=== PATIENT | male | born 1990 | race Caucasian/White ===

== ENCOUNTER → 2016-09-27 | Outpatient (CLI) | payer MEDICAID ==
--- NOTE | 2016-09-27 10:51 | US ---
Venous Doppler Study of right Lower Extremity Clinical Indications: Previous DVT at [facility] July, after ACL surgery. On blood thi nners. Followup evaluation. Technique: High-frequency transducer was used for imaging and Doppler study of the deep veins of the leg from the upper calf to the groin. Pulsed Doppler and color Doppler were utilized, along with va rious maneuvers, to assess flow in the deep veins. Findings: There is focal thrombus involving proximal segment of posterior tibial vein in the proxima l calf just above the confluence of the posterior tibial veins for length of about 2 cm. Otherwise, t he deep veins of the groin, thigh, knee, and upper calf are well displayed and are otherwise normally compressible. Doppler flow patterns are unremarkable. There is no evidence of additional deep veno us thrombosis. There is normal compression of the greater saphenous vein without superficial thrombos is. Impression: Short segment of thrombus in the posterior tibial vein confluence in the proximal calf w ithout additional evidence of DVT. Clinical correlation is recommended with respect to the extent of DVT found at [facility].
== END ==
LOC: BMCIMAGING 09:29
PROVIDERS: ATTEND Internal Medicine
DX: I82.441 Acute embolism and thrombosis of right tibial vein (principal)

== ENCOUNTER 2016-10-13 13:29 | Emergency (ER) | payer MEDICAID ==
[2016-10-13 13:33] VITALS: RESP 16
--- NOTE | 2016-10-13 13:38 | EDPHY ---
H & P Stated Complaint: EXTREMELY SUICIDAL, WOULD TRY AND SLIT JUGULAR, LIGHT SELF ON FIRE - Personal History Current Tetanus Diphtheria and Acellular Pertussis (TDAP): Yes Tetanus Vaccine Date: < 10 YEARS - Medical/Surgical History Hx Asthma: Yes Hx Chronic Respiratory Disease: No Hx Diabetes: No Hx Cardiac Disease: No Hx Renal Disease: No Hx Cirrhosis: No Hx Alcoholism: No Hx HIV/AIDS: No Hx Splenectomy or Spleen Trauma: No Other PMH: pmh-asthma, cellulitis. psh- L wrist. ACL SURGERY 08/01/2016 - Social History Smoking Status: Current every day smoker Time Seen by Provider: 10/13/16 13:36 Constitutional: Initial Vital Signs Temperature (C) 36.6 C 10/13/16 13:29 Heart Rate 93 10/13/16 13:29 Respiratory Rate 16 10/13/16 13:29 Blood Pressure 146/91 H 10/13/16 13:29 O2 Sat (%) 94 10/13/16 13:29 O2 Delivery Mode Room Air Allergies/Adverse Reactions: Sulfa (Sulfonamide Antibiotics) Allergy (Mild, Verified 10/13/16 13:34) Home Medications: Medication Instructions Recorded Warfarin Sodium [Coumadin] 10 mg PO DAILY 10/14/16 oxyCODONE IR [Oxycodone Ir (*)] 10 mg PO Q4HRS PRN 10/14/16 Medical Decision Making ED Course/Re-evaluation: CHIEF COMPLAINT: Psychiatric evaluation HISTORY OF PRESENT ILLNESS: The patient is a 26-year-old male with a history of depression and suicidal attempts who presents with acute SI. He reports that he has a plan and would kill himself at any moment. He says he would either "slit the jugular" or "light myself on fire and jump off of a building." He is also on Warfarin for a blood clot that he got after knee surgery. He denies HI. REVIEW OF SYSTEMS: A 10 point review of systems was performed and is negative with the exception of the elements mentioned in the history of present illness. PHYSICAL EXAM: General Appearance: Alert, well hydrated, appropriate, and non-toxic appearing. Head: Atraumatic without scalp tenderness or obvious injury Eyes: Pupils equal, round, reactive to light and accommodation, EOMI, no trauma , no injection. Ears: Clear bilaterally, no perforation, normal landmarks Nose: Atraumatic, no rhinorrhea, clear. Throat: There is no erythema or exudates, no lesions, normal tonsils, mucus membranes moist. Neck: Supple, 2+ carotid upstroke, nontender, no lymphadenopathy. Respiratory: No retractions, no distress, no wheezes, and no accessory muscle use. Lungs are clear to auscultation bilaterally. Cardiovascular: Regular rate and rhythm, no murmurs, rubs, or gallops. Bilateral carotid, radial, dorsalis pedis, and posterior tibial pulses intact. Good capillary refill all extremities. Gastrointestinal: Abdomen is soft, nontender, non-distended, no masses, no rebound, no guarding, no peritoneal signs. Musculoskeletal: Normal active ROM of all extremities, atraumatic. Neurological: Alert, appropriate, and interactive. The patient has normal DTRs and non-focal cranial nerves, motor, sensory, and cerebellar exam. Skin: No rashes, good turgor, no nodules on palpation. Past medical history:Depression, asthma, cellulitis. Past surgical history:Knee surgery. Family history:Non-contributory. Social history:Here alone. DIFFERENTIAL DIAGNOSIS: The differential diagnosis for the patient's depression included but was not limited to functional and major depression, situational depression, medication side effect, drugs, and alcohol abuse. MEDICAL DECISION MAKING: Patient is in no acute distress and is hemodynamically stable. We are awaiting psychiatric team's evaluation. Patient has known history of psychiatric disorders and is here for evaluation. An IV was established and labs ordered. The patient's Coumadin level will be checked. 1400: Patient signed out to Dr. Carter at shift change. (Mook Day) 7:00 a.m.- The patient has remained stable throughout my shift, the case has been signed out to Dr. Stephens. The patient is awaiting placement at a crisis stabilization unit. (Irma Cruz) Care assumed from Dr. Carter at 8:45 p.m., plan for psychiatric evaluation and disposition after their recommendations. 2158: Patient had psychiatric evaluation and per Дмитрий servicing rep at this time plan for CSU placement. Signed out to Anthony at 0 with plan as above. 1418: 10/[address] Stephens at this time with psychiatric disposition still pending. Patient accepted at [facility] crisis stabilization unit by Jigna Glenney TOXICOLOGIST. Reason for transfer is inpatient psychiatric stabilization not available at [facility], stable for transfer. Accepted by Dr. Adebayo Swain at [facility]. (Harjeet Ponce) Other Provider: Patient signed out to me by Dr. Day at 2:00 p.m. pending mental health evaluation. I signed the patient out to Dr. Harjeet Ponce at approximately 8:45 p.m. pending mental health evaluation as well. The patient is medically clear. He has been given his evening dose of Coumadin. (Jayden Carter) I assumed care of this patient at 7 o'clock, change of shift, from Dr. Irma Cruz. We are awaiting placement at the crisis stabilization unit. Patient requested a nicotine patch which was given. Patient's care was assumed by Dr. Ponce at 3:00 p.m. patient can be placed at the crisis stabilization unit, however, there are issues regarding the patient' s regular medications in including Coumadin and narcotic pain medications. Please see Dr. Ponce note for further information. (Manisha Stephens) - Data Points Laboratory Results: Laboratory Results 10/13/16 13:51 10/13/16 13:51 Medications Given: Discontinued Medications Nicotine (Nicoderm Cq) 21 mg TD EDNOW ONE Stop: 10/14/16 12:57 Last Admin: 10/14/16 14:49 Dose: 21 mg Oxycodone HCl (Oxycontin) 10 mg PO ONCE ONE Stop: 10/14/16 15:30 Last Admin: 10/14/16 15:56 Dose: 10 mg Warfarin Sodium (Coumadin) 10 mg PO ONCE@16 ONE Stop: 10/13/16 16:01 Last Admin: 10/13/16 17:44 Dose: 10 mg Warfarin Sodium (Coumadin) 10 mg PO EDNOW ONE Stop: 10/14/16 15:29 Last Admin: 10/14/16 15:56 Dose: 10 mg Departure - Departure Disposition: Other Psych, Not Sho Clinical Impression: Depression, Suicidal ideation Condition: Good Instructions: Depression (ED), Suicide Prevention for Adults (ED) Referrals: Bryan Simeon MD [Primary Care Provider] - As per Instructions Report Scribed for: Mook Day Report Scribed by: Parth Emerson Date of Report: 10/13/16 Time of Report: 13:42
[2016-10-13 13:59] LABS: % IMMATURE GRANULYOCYTES 0.3 % (0.0-1.1); ABSOLUTE IMMATURE GRANULOCYTES 0.04 10^3/uL (0.00-0.10); ADD DIFF? NO; ADD MORPH? NO; ADD SCAN? NO; ATYPICAL LYMPHOCYTE FLAG 0 (0-99); FRAGMENT RBC FLAG 0 (0-99); HEMATOCRIT 46.6 % (40.0-51.0); HEMOGLOBIN 16.2 g/dL (13.7-17.5); LEFT SHIFT FLG 0 (0-99); LIPEMIA HEMOLYSIS FLAG 90 (0-99); MEAN CELL HEMOGLOBIN 30.5 pg (27.9-34.1); MEAN CELL HEMOGLOBIN CONCENTR. 34.8 g/dL (32.4-36.7); MEAN CELL VOLUME 87.6 fL (81.5-99.8); MEAN PLATELET VOLUME 9.4 fL (8.7-11.7); PLATELET CLUMPS FLAG 0 (0-99); PLATELET COUNT 304 10^3/uL (150-400); RED BLOOD CELL COUNT 5.32 10^6/uL (4.40-6.38); RED CELL DISTRIBUTION WIDTH 12.4 % (11.5-15.2)
[2016-10-13 14:11] LABS: INR 1.42 (0.83-1.16); PROTIME(PATIENT) 17.3 SEC (12.0-15.0)
[2016-10-13 14:12] LABS: APTT 29.6 SEC (23.0-38.0)
[2016-10-13 14:15] LABS: ANION GAP 10 mEq/L (8-16); CALCIUM 9.2 mg/dL (8.5-10.4); CARBON DIOXIDE 26 mEq/l (22-31); CHLORIDE 103 mEq/L (97-110); CREATININE 0.7 mg/dL (0.7-1.3); ETHANOL SERUM 82 mg/dL (0-10); GLOMERULAR FILTRATION RATE > 60; GLUCOSE 97 mg/dL (70-100); POTASSIUM 3.7 mEq/L (3.5-5.2); SALICYLATE < 1.0 mg/dL (2.0-20.0); SODIUM 139 mEq/L (134-144)
[2016-10-13] MEDS ORDERED: WARFARIN SODIUM 5 MG TAB PO ONE (16:00)
[2016-10-14] MEDS ORDERED: NICOTINE 21 MG/24 HR PATCH TD ONE (12:56)
[2016-10-14] MEDS ORDERED: WARFARIN SODIUM 5 MG TAB PO ONE (15:28)
[2016-10-14 17:39] VITALS: BP 157/81; PULSE 79; TEMP 98.4; O2SAT 97
== END 2016-10-14 17:32 ==
DX: R45.851 Suicidal ideations (principal); F32.9 Major depressive disorder, single episode, unspecified; J45.909 Unspecified asthma, uncomplicated; F17.200 Nicotine dependence, unspecified, uncomplicated; Z79.01 Long term (current) use of anticoagulants
CPT/HCPCS: 80305; G0480

== ENCOUNTER → 2016-12-28 | Outpatient (CLI) | payer MEDICAID | LOC: BMCIMAGING 16:21 | PROVIDERS: ATTEND Internal Medicine | DX: R04.2 Hemoptysis (principal); R10.9 Unspecified abdominal pain ==

== ENCOUNTER → 2017-01-15 | Outpatient (CLI) | payer MEDICAID | LOC: FIMAGING 08:05 | PROVIDERS: ATTEND Internal Medicine | DX: K31.89 Other diseases of stomach and duodenum (principal); K21.9 Gastro-esophageal reflux disease without esophagitis ==

== ENCOUNTER → 2017-01-18 | Outpatient (CLI) | payer MEDICAID | LOC: BMCIMAGING 10:47 | PROVIDERS: ATTEND Internal Medicine | DX: Z09 Encounter for follow-up examination after completed treatment for conditions other than malignant neoplasm (principal); I82.521 Chronic embolism and thrombosis of right iliac vein ==

== ENCOUNTER → 2017-12-21 | Outpatient (CLI) | payer MEDICAID | LOC: FIMAGING 14:02 | PROVIDERS: ATTEND Physician Assistant | DX: T84.84XA Pain due to internal orthopedic prosthetic devices, implants and grafts, initial encounter (principal); Z96.9 Presence of functional implant, unspecified ==

== ENCOUNTER 2018-01-19 01:30 | Emergency (ER) | payer MEDICAID ==
[2018-01-19 01:41] VITALS: BP 142/114
--- NOTE | 2018-01-19 01:42 | EDPHY ---
H & P Time Seen by Provider: 01/19/18 01:39 HPI/ROS: HPI CHIEF COMPLAINT: Alcohol intoxication, left chest wall pain. HISTORY OF PRESENT ILLNESS: This patient 27-year-old male, he drinks alcohol regularly, he states that he had 6 beers this evening percentage of alcohol 8-10 %, additionally he had shots of liquor, he was going home this evening when police made contact with him out in front of a front yd where he was not causing disturbance. He complained of left lateral posterior chest wall pain to the police and they called EMS. EMS evaluated him and decided to bring him to the emergency room. The patient did not want come to the emergency room. Patient states that he felt fine however did have a large amount of alcohol this evening. He denies injuring himself or falling. He does complain of left posterior left lateral rib pain. He is unsure how he injured himself. He denies falling. However he is intoxicated with alcohol. Past Medical History: History of PE after ACL surgery. Past Surgical History: ACL surgery. Social History: Alcohol use frequently, smokes tobacco daily. Denies other illicit drugs. Family History: Noncontributory ROS REVIEW OF SYSTEMS: A comprehensive 10 point review of systems is otherwise negative aside from elements mentioned in the history of present illness. Exam Constitutional appears well nontoxic no acute distress, triage nursing summary reviewed, vital signs reviewed, awake/alert. Eyes normal conjunctivae and sclera, EOMI, PERRLA. HENT normal inspection, atraumatic, moist mucus membranes, no epistaxis, neck supple/ no meningismus, no raccoon eyes. Respiratory clear to auscultation bilaterally, normal breath sounds, no respiratory distress, no wheezing. Cardiovascular chest wall: Left lateral and posterior chest mild tender palpation, no crepitus, no subcutaneous emphysema, reproducible on exam, most focally tender left lateral posterior ribs. rate normal, regular rhythm, no murmur, no edema, distal pulses normal. Gastrointestinal soft, non-tender, no rebound, no guarding, normal bowel sounds, no distension, no pulsatile mass. Genitourinary no CVA tenderness. Musculoskeletal no midline vertebral tenderness, full range of motion, no calf swelling, no tenderness of extremities, no meningismus, good pulses, neurovascularly intact. Skin pink, warm, & dry, no rash, skin atraumatic. Neurologic awake, alert and oriented x 3, AAOx3, moves all 4 extremities equally, motor intact, sensory intact, CN II-XII intact, normal cerebellar, normal vision, normal speech. Psychiatric normal mood/affect. Heme/Lymph/Immune no lymphadenopathy. Differential Diagnosis: Includes but is not limited to in a particular order acute alcohol intoxication, rib contusions, rib fractures, pneumothorax, hemothorax, soft tissue contusion Medical Decision Making: Plan for this patient breath alcohol, x-ray two view chest rule out pneumothorax or significant rib fractures. Re-evaluation: 0141: Breath alcohol 209. X-ray of the chest two view shows a left lateral lower rib fracture. This was interpreted by myself. There is no pneumothorax visualize. I see 1 single rib fracture. Discussed with patient about his rib fracture. Recommend incentive spirometer. Anti-inflammatory pain medicine. Additionally discussed return precautions with him. He understands return emergency room if develops worsening pain shortness of breath questions or concerns. Source: Patient, EMS - Personal History Tetanus Vaccine Date: < 10 YEARS - Medical/Surgical History Hx Asthma: Yes Hx Chronic Respiratory Disease: No Hx Diabetes: No Hx Cardiac Disease: No Hx Renal Disease: No Hx Cirrhosis: No Hx Alcoholism: No Hx HIV/AIDS: No Hx Splenectomy or Spleen Trauma: No Other PMH: pmh-asthma, cellulitis. psh- L wrist. ACL SURGERY 08/01/2016 - Social History Smoking Status: Current every day smoker Constitutional: Initial Vital Signs Temperature (C) 36.6 C 01/19/18 01:39 Heart Rate 67 01/19/18 01:39 Respiratory Rate 16 01/19/18 01:39 Blood Pressure 142/114 H 01/19/18 01:39 O2 Sat (%) 96 01/19/18 01:39 O2 Delivery Mode Room Air Allergies/Adverse Reactions: Sulfa (Sulfonamide Antibiotics) Allergy (Mild, Verified 01/19/18 01:36) Home Medications: Medication Instructions Recorded Ibuprofen 01/19/18 Ibuprofen [Motrin (*)] 800 mg PO Q6-8PRN #14 tab 01/19/18 traMADol 01/19/18 Departure - Departure Disposition: Home, Routine, Self-Care Clinical Impression: Alcohol intoxication Qualifiers: Complication of substance-induced condition: uncomplicated Qualified Code(s): F10.920 - Alcohol use, unspecified with intoxication, uncomplicated Rib fracture Qualifiers: Encounter type: initial encounter Rib fracture type: single rib Fracture type: closed Laterality: left Qualified Code(s): S22.32XA - Fracture of one rib, left side, initial encounter for closed fracture Condition: Good Instructions: Rib Fracture (ED), Alcohol Intoxication (ED), Contusion in Adults (ED) Additional Instructions: 1. Refrain from drinking alcohol. 2. Recommend he take anti-inflammatory pain medicine for her rib pain this includes Tylenol/Motrin. 3. Return emergency room if you have worsening pain, shortness of breath or questions or concerns. Referrals: Patient,NotPresent [Unknown] - As per Instructions Prescriptions: Ibuprofen [Motrin (*)] 800 mg PO Q6-8PRN #14 tab
== END 2018-01-19 02:30 | disposition home or self-care (01) ==
LOC: EDUNIT#
DX: S22.32XA Fracture of one rib, left side, initial encounter for closed fracture (principal); F10.920 Alcohol use, unspecified with intoxication, uncomplicated; J45.909 Unspecified asthma, uncomplicated; F17.200 Nicotine dependence, unspecified, uncomplicated; X58.XXXA Exposure to other specified factors, initial encounter

== ENCOUNTER 2018-02-07 09:38 | Day surgery (SDC) | payer MEDICAID ==
[2018-02-07] MEDS ORDERED: LR 1,000 ML IV SCH (09:44)
[2018-02-07] MEDS ORDERED: ceFAZolin 2 GM/SWFI 2 GM/20 ML SYR IVP ONE (09:44)
[2018-02-07] MEDS ORDERED: ACETAMINOPHEN 500 MG TAB PO ONE (09:44)
[2018-02-07] MEDS ORDERED: LR 1,000 ML IV ONE (09:45)
--- NOTE | 2018-02-07 10:48 | PDANEPAE ---
<Dean García - Last Filed: 02/07/18 10:46> ANE History of Present Illness 27 yo male with R ACL tear for reconstruction. ANE Past Medical History - Cardiovascular History Hx Hypertension: No Hx Arrhythmias: No Hx Chest Pain: No Hx Coronary Artery / Peripheral Vascular Disease: No Hx CHF / Valvular Disease: No Hx Palpitations: No - Pulmonary History Hx COPD: No Hx Asthma/Reactive Airway Disease: Yes Hx Oxygen in Use at Home: No Hx Sleep Apnea: No Sleep Apnea Screening Result - Last Documented: Negative - Neurologic History Hx Cerebrovascular Accident: No Hx Seizures: No Hx Dementia: No - Endocrine History Hx Diabetes: No - Renal History Hx Renal Disorders: No - Liver History Hx Hepatic Disorders: No - Neurological & Psychiatric Hx Hx Neurological and Psychiatric Disorders: Yes Neurological / Psychiatric History Comment: depression/bipolar, multiple suicide attempts - Cancer History Hx Cancer: No - Congenital Disorder History Hx Congenital Disorders: No - GI History Hx Gastrointestinal Disorders: Yes Gastrointestinal History Comment: hx ulcers - Other Health History Other Health History: broken rib on left - Chronic Pain History Chronic Pain: No (left back ribs broken) - Surgical History Prior Surgeries: acl repair 2016 with PE post procedure. bilat wrist,right wrist has plate ANE Review of Systems Review of Systems: - Exercise capacity METS (RN): 6 METS ANE Patient History - Allergies Allergies/Adverse Reactions: Sulfa (Sulfonamide Antibiotics) Allergy (Mild, Verified 01/19/18 01:36) - Home Medications Home Medications: Ibuprofen 01/19/18 [Last Taken 02/02/18] traMADol 50 mg 01/19/18 [Last Taken 02/07/18 05:00] - NPO status NPO Since - Liquids (Date): 02/07/18 NPO Since - Liquids (Time): 07:00 NPO Since - Solids (Date): 02/06/18 NPO Since - Solids (Time): 23:30 - Smoking Hx Smoking Status: Heavy smoker - Alcohol Use Alcohol Use: Heavy (frequent intoxication) - Family Anes Hx Family Hx Anesthesia Complications: none ANE Labs/Vital Signs - Vital Signs Blood Pressure: 144/85 Heart Rate: 71 Respiratory Rate: 14 O2 Sat (%): 96 Height: 172.72 cm Weight: 78.471 kg <Marti Patino - Last Filed: 02/07/18 11:44> ANE Past Medical History - Cardiovascular History Hx Hypertension: No Hx Arrhythmias: No Hx Chest Pain: No Hx Coronary Artery / Peripheral Vascular Disease: No ANE Review of Systems Review of systems is: negative Review of Systems: - Systems Respiratory: Reports: cough (chronic smoker's cough) ANE Patient History - Anes Hx Anes Hx: no prior problems - Smoking Hx Smoking Status: Heavy smoker Marijuana use: No - Alcohol Use Alcohol Use: Heavy (trying to quit - no drinking in past 3 weeks) ANE Physical Exam - Airway Neck exam: FROM Mallampati Score: Class 2 Mouth exam: poor dentition - Pulmonary Pulmonary: other (coarse BS) - Cardiovascular Cardiovascular: regular rate and rhythym - ASA Status ASA Status: II ANE Anesthesia Plan Anesthesia Plan: GA w LMA
[2018-02-07] MEDS ORDERED: ceFAZolin 2 GM/DEXTROSE 100 ML IV ONE (11:00)
[2018-02-07] MEDS ORDERED: EPINEPHrine 30 MG/30 ML MDV (0.1 MG/0.1 ML) ONE (11:01)
[2018-02-07] MEDS ORDERED: BUPIVACAINE 0.5% 30 ML SDV ONE (11:01)
[2018-02-07] MEDS ORDERED: EPINEPHrine 1 MG/ML INJ ONE (11:01)
--- NOTE | 2018-02-07 11:04 | PDHPUP ---
History & Physical Update H&P update statement: This history and physical update is based on an assessment of the patient which was completed after admission or registration (within 24 hours), but prior to the surgery/procedure. H&P update: no change in patient's condition since H&P completed
[2018-02-07] MEDS ORDERED: oxyCODONE IR 5 MG TAB PO PRN ×2 (11:06→13:25)
[2018-02-07] MEDS ORDERED: MIDAZOLAM 2 MG/2 ML VIAL IVP ONE (11:47)
[2018-02-07] MEDS ORDERED: DEXAMETHASONE 4 MG/ML VIAL ONE (11:59)
[2018-02-07] MEDS ORDERED: fentaNYL 100 MCG/2 ML INJ ONE ×3 (11:59→14:32)
[2018-02-07] MEDS ORDERED: LIDOCAINE 2% 5 ML SDV ONE (11:59)
[2018-02-07] MEDS ORDERED: PROPOFOL/EMULSION 500 MG/50 ML BOTTLE IV ONE (11:59)
[2018-02-07] MEDS ORDERED: ONDANSETRON 4 MG/2 ML VIAL ONE (13:22)
[2018-02-07] MEDS ORDERED: DIAZEPAM 5 MG/ML 1 ML SYR IVP PRN (13:25)
[2018-02-07] MEDS ORDERED: PROMETHAZINE HCL 25 MG/ML INJ IVP PRN (13:25)
[2018-02-07] MEDS ORDERED: NALOXONE HCL 0.4 MG/ML INJ IVP PRN (13:25)
[2018-02-07] MEDS ORDERED: IPRATROPIUM/ALBUTEROL 3 ML DEYVIAL IH PRN (13:26)
--- NOTE | 2018-02-07 13:30 | POSTOPPROG ---
Post Op Note Date of Operation: 02/07/18 Surgeon: Filiberto Woods Label Paster: burt Anesthesiologist: mejia Anesthesia: GET(General Endotracheal) Pre-op Diagnosis: right knee acl tear Post-op Diagnosis: same Indication: manav Procedure: right knee scope, bone grafting Inf/Abcess present in the surg proc area at time of surgery?: No Depth: Deep Incisional (Fascial) EBL: 50-100
--- NOTE | 2018-02-07 13:50 | POSTANESTH ---
Post Anesthetic Evaluation Cardiovascular Status: Normal, Stable Respiratory Status: Normal, Stable Level of Consciousness/Mental Status: Can Participate in Eval, Mildly Sleepy, Arousable Pain Control: Adequate, Prn Tx Ordered Nausea/Vomiting Control: Adequate, Prn Tx Ordered Complications Possibly Related to Anesthesia: None Noted
[2018-02-07] MEDS ORDERED: oxyCODONE IR 5 MG TAB ONE (14:17)
[2018-02-07] MEDS: fentaNYL 100 MCG/2 ML INJ IVP PRN ×2 (14:36→14:51)
[2018-02-07 16:07] VITALS: BP 139/86
--- NOTE | 2018-02-12 13:50 | GOP ---
[f rep st] OPERATIVE REPORT DATE OF OPERATION: 02/07/2018 SURGEON: Filiberto Woods MD PASTORAL ASSISTANT: Harjinder Urias SOAP PRESS FEEDER, [facility], whose surgical assistance was a medical necessity for the entiret y of the case. PREOPERATIVE DIAGNOSIS: Right knee failed anterior cruciate ligament with bone loss tibia. POSTOPERATIVE DIAGNOSIS: Right knee failed anterior cruciate ligament with bone loss tibia. PROCEDURE PERFORMED: 1. Right knee arthroscopy with minor synovectomy. 2. Craterization, excision of bone tibia. 3. Bone graft tibia. FINDINGS: SPECIMENS: To Pathology, none. INDICATIONS: The patient is a 27-year-old young gentleman who is known to me for previous ACL recons truction. He has developed failure of his ACL with bony enlargement to his tibia and loss of the prev ious graft. Given his young age, instability level, I recommended recurrent ACL revision; however, gi danni the bone loss of the tibia, he requires bone grafting as a stage reimplantation procedure. He und erstood the risks, benefits, alternatives, and wished to proceed. Written consent was signed and plac ed in patient's chart. DESCRIPTION OF PROCEDURE: The patient was identified in the preanesthesia area. The right knee was c learly demarcated as the operative site with an indelible marker. He was given 2 g of Ancef intraveno usly en route to the operative suite. In the OR, general endotracheal anesthesia was administered. Attention was turned to the right knee, which was sterilely prepped and draped in usual fashion. A to urniquet was applied to the upper thigh. The limb was then sterilely prepped and draped. Appropriate time-out procedure was carried out. The limb was exsanguinated with Esmarch bandage. The tourniquet i nflated to 275 mmHg. Standard arthroscopic portal sites created. Diagnostic arthroscopy ensued. The articular surface of t he patella and trochlea were intact. The suprapatellar pouch was devoid of any loose foreign debris. The medial and lateral gutters were free of any loose foreign debris. The medial compartment was ente red. The articular surface of the femur and tibia were intact. The medial meniscus was stable and int act. Concurrently, the intercondylar notch was entered. The ACL graft was visualized. This was frayed and grossly torn across the midportion and this was completely debrided. The femoral tunnel was inta ct with no gross bony loss and no bone grafting was carried out. The ACL was debrided down to the tib ia. The lateral compartment was entered. The articular surface of the femur and tibia were intact. Th e lateral meniscus was stable, intact to gentle probing. Previous anterior medial incision was opened in entirety, carried sharply through the skin and subcut aneous tissue, down to bone. The bony tunnel was identified and a guidewire advanced into the interco ndylar area. This was serially reamed to a 2 cm diameter reamer. All loose soft tissue debris was wit hdrawn. A curette was used to remove the remaining soft tissue. Using a femoral head allograft, a 2 c m plug was then created. Additional bone fragments were then removed as cancellous chips and packed o ff to the lateral aspect. A bone plug was placed in a DBX and PRP mixture, and impacted flush with th e tibial surface. Drill holes were then placed into the bone plug and this was again injected with th e PRP and DBX material. The wound was copiously irrigated, closed in layers using 0 Vicryl, 2-0 Monoc ryl, and 4-0 Monocryl. The portal sites closed using 3-0 nylon. A sterile dressing was applied follow ed by a knee brace. The patient was awakened, extubated, and taken to recovery room in good stable co ndition. TOTAL TOURNIQUET TIME: 60 minutes. COMPLICATIONS: None. IMPLANTS: As above. DISPOSITION: To the recovery room, then home. /[id number]/MODL
== END 2018-02-07 16:25 | disposition home or self-care (01) ==
LOC: FSGY 09:38
PROVIDERS: ATTEND Orthopaedic Surgery
DX: S83.511A Sprain of anterior cruciate ligament of right knee, initial encounter (principal); M85.861 Other specified disorders of bone density and structure, right lower leg; T84.89XA Other specified complication of internal orthopedic prosthetic devices, implants and grafts, initial encounter
CPT/HCPCS: C1762; J0171; J0690; J1100; J2250; J2405; J2704; J3010; L1832

== ENCOUNTER → 2018-04-10 | Outpatient (CLI) | payer MEDICAID | LOC: BMCIMAGING 10:47 | PROVIDERS: ATTEND Physician Assistant | DX: S89.91XA Unspecified injury of right lower leg, initial encounter (principal); Z98.890 Other specified postprocedural states ==

== ENCOUNTER → 2018-07-31 | Outpatient (CLI) | payer MEDICAID | LOC: BMCIMAGING 08:08 | PROVIDERS: ATTEND Orthopaedic Surgery | DX: Z47.89 Encounter for other orthopedic aftercare (principal); S83.511D Sprain of anterior cruciate ligament of right knee, subsequent encounter ==

== ENCOUNTER 2018-08-29 11:15 | Day surgery (SDC) | payer MEDICAID ==
[2018-08-29] MEDS ORDERED: ceFAZolin 2 GM/DEXTROSE 100 ML IV ONE (11:25)
[2018-08-29] MEDS ORDERED: ACETAMINOPHEN 500 MG TAB PO ONE (11:25)
[2018-08-29] MEDS ORDERED: LR 1,000 ML IV SCH (11:25)
[2018-08-29] MEDS ORDERED: LR 1,000 ML IV ONE (11:26)
[2018-08-29] MEDS ORDERED: LIDOCAINE 1% 2 ML INJ ID PRN (11:26)
[2018-08-29] MEDS ORDERED: BUPIVACAINE/EPI 0.5% 30 ML SDV ONE (11:41)
[2018-08-29] MEDS ORDERED: EPINEPHrine 30 MG/30 ML MDV (0.1 MG/0.1 ML) ONE (11:41)
[2018-08-29] MEDS ORDERED: MIDAZOLAM 2 MG/2 ML VIAL IVP ONE (11:59)
--- NOTE | 2018-08-29 11:59 | PDANEPAE ---
ANE History of Present Illness 28 yo for ACL ANE Past Medical History - Cardiovascular History Hx Hypertension: No Hx Arrhythmias: No Hx Chest Pain: No Hx Coronary Artery / Peripheral Vascular Disease: No Hx CHF / Valvular Disease: Yes Hx Palpitations: No Cardiovascular History Comment: INTERMITTENT PVC'S RECENT CARDIAC WORKUP - Pulmonary History Hx COPD: No Hx Asthma/Reactive Airway Disease: No Hx Recent Upper Respiratory Infection: No Hx Oxygen in Use at Home: No Hx Sleep Apnea: No Sleep Apnea Screening Result - Last Documented: Negative Pulmonary History Comment: PE POST OP 2016. QUIT SMOKING 04/2018 - Neurologic History Hx Cerebrovascular Accident: No Hx Seizures: No Hx Dementia: No - Endocrine History Hx Diabetes: No - Renal History Hx Renal Disorders: No - Liver History Hx Hepatic Disorders: No - Neurological & Psychiatric Hx Hx Neurological and Psychiatric Disorders: Yes Neurological / Psychiatric History Comment: depression/bipolar, multiple suicide attempts - Cancer History Hx Cancer: No - Congenital Disorder History Hx Congenital Disorders: No - GI History Hx Gastrointestinal Disorders: Yes Gastrointestinal History Comment: HX OF PRIOR GI ULCER NEVER HEALED COMPLETELY FINISHED TAKING RX 08/24/18 - Other Health History Other Health History: broken rib on left - Chronic Pain History Chronic Pain: Yes (RT KNEE) - Surgical History Prior Surgeries: RT KNEE SCOPE 02/07/18. acl repair 2016 with PE post procedure. bilat wrist,. ORIF RIGHT WRIST ANE Review of Systems Review of Systems: - Exercise capacity METS (RN): 4 METS ANE Patient History - Allergies Allergies/Adverse Reactions: Sulfa (Sulfonamide Antibiotics) Allergy (Mild, Verified 08/27/18 10:07) RASH/DIARRHEA - Home Medications Home medications: home medication list seen and reviewed Home Medications: NK [No Known Home Meds] 08/27/18 [Last Taken Unknown] - NPO status NPO Status: no food or drink >8 hours NPO Since - Liquids (Date): 01/11/18 NPO Since - Liquids (Time): 02:30 NPO Since - Solids (Date): 08/28/18 NPO Since - Solids (Time): 20:00 - Anes Hx Anes Hx: no prior problems - Smoking Hx Smoking Status: Former smoker - Family Anes Hx Family Hx Anesthesia Complications: none ANE Labs/Vital Signs - Vital Signs Blood Pressure: 152/82 Heart Rate: 64 Respiratory Rate: 18 O2 Sat (%): 97 Height: 5 ft 8.5 in Weight: 83.915 kg ANE Physical Exam - Airway Neck exam: FROM Mallampati Score: Class 2 Mouth exam: normal dental/mouth exam - Pulmonary Pulmonary: no respiratory distress - Cardiovascular Cardiovascular: regular rate and rhythym - ASA Status ASA Status: II ANE Anesthesia Plan Anesthesia Plan: GA w LMA
[2018-08-29] MEDS ORDERED: fentaNYL 250 MCG/5 ML INJ ONE (12:09)
[2018-08-29] MEDS ORDERED: PROPOFOL/EMULSION 500 MG/50 ML BOTTLE IV ONE (12:10)
[2018-08-29] MEDS ORDERED: PROPOFOL 200 MG/20 ML VIAL ONE (13:43)
[2018-08-29] MEDS ORDERED: KETOROLAC 30 MG/1 ML SDV ONE (13:56)
--- NOTE | 2018-08-29 13:57 | POSTOPPROG ---
Post Op Note Date of Operation: 08/29/18 Surgeon: Filiberto Woods Radio Mechanic Helper: burt Anesthesiologist: lavern Anesthesia: GET(General Endotracheal) Pre-op Diagnosis: failed right knee acl Post-op Diagnosis: same Indication: same Procedure: right knee acl with allograft Inf/Abcess present in the surg proc area at time of surgery?: No Depth: Deep Incisional (Fascial) EBL: 50-100
[2018-08-29] MEDS ORDERED: HYDROmorphONE/DILAUDID 2 MG/ML INJ IVP PRN (14:00)
[2018-08-29] MEDS ORDERED: ONDANSETRON 4 MG/2 ML VIAL IVP PRN (14:00)
[2018-08-29] MEDS ORDERED: NALOXONE HCL 0.4 MG/ML INJ IVP PRN (14:00)
[2018-08-29] MEDS ORDERED: PROMETHAZINE HCL 25 MG/ML INJ IVP PRN (14:00)
[2018-08-29] MEDS ORDERED: fentaNYL 100 MCG/2 ML INJ ONE ×2 (14:28→14:47)
[2018-08-29] MEDS: fentaNYL 100 MCG/2 ML INJ IVP PRN ×4 (14:30→14:56)
[2018-08-29] MEDS ORDERED: oxyCODONE IR 5 MG TAB ONE (15:00)
--- NOTE | 2018-08-29 15:01 | POSTANESTH ---
Post Anesthetic Evaluation Cardiovascular Status: Normal, Stable Respiratory Status: Normal, Stable Level of Consciousness/Mental Status: Can Participate in Eval Pain Control: Adequate, Prn Tx Ordered Nausea/Vomiting Control: Adequate, Prn Tx Ordered Complications Possibly Related to Anesthesia: None Noted
[2018-08-29] MEDS: oxyCODONE IR 5 MG TAB PO PRN ×2 (15:02→16:48)
[2018-08-29 17:30] VITALS: BP 158/86
--- NOTE | 2018-09-05 08:24 | GOP ---
DATE OF OPERATION: 08/29/2018 SURGEON: Filiberto Woods MD IT COORDINATOR: Harjinder Urias WELDING MACHINE SETTER, COMMERCIAL COLLECTOR, surgical product sales consultant who was medical necessity for the entirety of the case. PREOPERATIVE DIAGNOSIS: Right knee anterior cruciate ligament disruption, chronic, status post bone grafting. POSTOPERATIVE DIAGNOSIS: Right knee anterior cruciate ligament disruption, chronic, status post bone grafting. PROCEDURE PERFORMED: Right knee arthroscopy with anterior cruciate ligament reconstruction. FINDINGS: SPECIMENS: To Pathology, none. INDICATIONS: The patient is a 28-year-old gentleman who returns today for planned elective reconstru ction of an ACL disruption. He has undergone previous bone grafting of the tibial and femoral tunnel s. This has matured. He is ready for re-implantation. DESCRIPTION OF PROCEDURE: The patient was identified in the preanesthesia area. The right knee carol rly demarcated as the operative site with indelible marker. He was given 2 g of Ancef intravenously in route to the operative suite. In the OR, general endotracheal anesthesia was administered. Atten tion was turned to the right knee, which was sterilely prepped and draped in usual fashion. A tourni quet was applied to the upper thigh. Appropriate time-out procedure was carried out. The limb was e xsanguinated with Esmarch bandage. Tourniquet inflated to 275 mmHg. Standard arthroscopic portal sites created through the previous incision sites. Diagnostic arthrosco py ensued. The superior pouch was devoid of any loose or foreign debris. The articular surface of t he patella and trochlea were intact. Medial and lateral joints were in intact. No chondromalacia to the femur or tibia bilaterally and no additional meniscal tears to the medial or lateral menisci. T he intercondylar notch was entered. The scar tissue was removed from the intercondylar notch. Addit ional notchplasty was performed. An allograft anterior tibialis tendon was prepared on the back tabl e, suturing in the proximal distal ends and draping over an Arthrex button. Femoral and tibial tunne ls were created with an inside-out technique using a flip wood cutter the femur and a guidewire in the tibia for a size 9 graft. All loose particulate debris was evacuated. The ACL was drawn until the b utton flipped on the posterolateral cortex of the femur, drawn into the femoral tunnel. Both graft a veronica were tension and secured with a 10 x 28 mm BioComposite screw. This was backed up with a bio Swi veLock anchor across the anterior aspect of the tibia and a FiberLoop suture over the distal graft. The wounds were copiously irrigated, closed in layers using 0 Vicryl, 2-0 Monocryl, and 3-0 nylon. S terile dressing was applied. The patient was awakened, extubated, and taken to recovery room in good and stable condition. TOTAL TOURNIQUET TIME: 50 minutes. COMPLICATIONS: None. IMPLANTS: As above. DISPOSITION: To the recovery room, then home. He will follow standard ACL recovery, weightbearing a s tolerated with the brace locked in extension for the first 2 weeks, then progressive range of motio n. /[id number]/MODL
== END 2018-08-29 17:12 | disposition home or self-care (01) ==
LOC: FSGY 11:15
PROVIDERS: ATTEND Orthopaedic Surgery
PROC: 0MQN4ZZ Repair Right Knee Bursa and Ligament, Percutaneous Endoscopic Approach (ICD-10-PCS; principal; 2018-08-29 13:00)
DX: T84.410A Breakdown (mechanical) of muscle and tendon graft, initial encounter (principal); M25.361 Other instability, right knee; Z86.711 Personal history of pulmonary embolism; Z87.891 Personal history of nicotine dependence; Z88.2 Allergy status to sulfonamides
CPT/HCPCS: C1713; J0171; J0690; J1885; J2250; J2704; J3010; L1832